=== PATIENT | female | born 1940 | race Caucasian/White ===

== ENCOUNTER 2019-10-17 22:59 | Emergency (ER) | payer OTHER, MEDICAID ==
[~2019-10-17] VITALS: Ht 149.9 cm; Wt 58.1 kg
[2019-10-17 23:03] VITALS: BP 242/93
--- NOTE | 2019-10-17 23:15 | NUR ---
AMBULATES TO BED 10 WITH AND DAUGHTER. PLACED IN GOWN, PUT ON MONITOR. MORENITA VICENTE AND DR. MITCHELL MADE AWARE.
[2019-10-17] MEDS ORDERED: hydrALAZINE 20 MG/ML VIAL IM ONE (23:25)
--- NOTE | 2019-10-17 23:30 | NUR ---
79 Y/O FEMALE PRESENTS TO ED, C/O HIGH BLOOD PRESSURE. PT STATES INCREASED IN BP SINCE LAST SUNDAY. PT COMPLIANT WITH BP MEDICATIONS; METOPROLOL, LOSARTAN. PT DENIES ANY HEADACHE OR DIZZINESS. NO CHEST PAIN, SOB/DIFFICULTY BREATHING NOTED. PT C/O OF NECK PAIN 02/14. ERMD MADE AWARE. WILL CONTINUE TO MONITOR.
[2019-10-18 01:26] VITALS: BP 134/54
--- NOTE | 2019-10-18 01:26 | NUR ---
Patient discharged with v/s stable. BP and HR lowered. No HUFF, dizziness, or other c/o at this time. Written and verbal after care instructions given and explained. Patient alert, oriented and verbalized understanding of instructions. Ambulatory with steady gait. All questions addressed prior to discharge. ID band removed. Patient advised to follow up with PMD. Rx of Tramadol and Robaxin given. Patient educated on indication of medication including possible reaction and side effects. Opportunity to ask questions provided and answered.
== END 2019-10-18 01:26 | disposition home or self-care (01) ==
LOC: MED 22:59
DX: I10 Essential (primary) hypertension (principal); Z86.73 Personal history of transient ischemic attack (TIA), and cerebral infarction without residual deficits; Z88.1 Allergy status to other antibiotic agents
CPT/HCPCS: 96372; 99283; J0360

== ENCOUNTER 2019-10-19 11:45 | Emergency (ER) | payer OTHER, MEDICAID ==
[~2019-10-19] VITALS: Ht 149.9 cm; Wt 54.4 kg
[2019-10-19 12:18] VITALS: BP 195/73
--- NOTE | 2019-10-19 14:30 | NUR ---
C/O HIGH B/P READINGS; SEEN IN OUR ER 2 DAYS AGO FOR CERVICAL SPRAIN; ADDS HER B/P WAS ELEVATED THEN AND CONTINUES , REQUESTING POSSIBLY ANOTHER B/P MED -VISITING FROM [facility] 12/06/2019 HX--[facility] RX---METOPROLOL 25MG QD, LOSARTAN 50MG QD
[2019-10-19] MEDS ORDERED: cloNIDine 0.1 MG TAB PO ONE (14:40)
--- NOTE | 2019-10-19 15:37 | NUR ---
Pt BP decreased to 139/67. Moreno made aware.
[2019-10-19 15:55] VITALS: BP 139/67
--- NOTE | 2019-10-19 15:57 | NUR ---
Patient discharged with v/s stable. Written and verbal after care instructions given and explained. Patient alert, oriented and verbalized understanding of instructions. Ambulatory with steady gait. All questions addressed prior to discharge. ID band removed. Patient advised to follow up with PMD. Rx of Hydrochlorothizaide 25mg was given. Patient educated on indication of medication including possible reaction and side effects. Opportunity to ask questions provided and answered.
== END 2019-10-19 15:57 | disposition home or self-care (01) ==
LOC: MED 11:45
DX: I10 Essential (primary) hypertension (principal); Z86.73 Personal history of transient ischemic attack (TIA), and cerebral infarction without residual deficits; Z88.1 Allergy status to other antibiotic agents
CPT/HCPCS: 99283